=== PATIENT | male | born 1970 | race Caucasian/White ===

== ENCOUNTER 2021-04-07 16:04 | Observation (INO) ==
[2021-04-07] MEDS ORDERED: ACETAMINOPHEN 1,000 MG/100 ML BAG IV ONE (16:18)
[2021-04-07] MEDS ORDERED: 0.9 % SODIUM CHLORIDE 1,000 ML IV ONE (16:18)
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
--- NOTE | 2021-04-07 16:51 | XRay Report ---
CLINICAL INFORMATION: Fever COMPARISON: 04/25/2020 TECHNIQUE: Portable FINDINGS: The heart size, mediastinum and pulmonary vessels are unremarkable. Mild patchy bibasilar airspace disease could represent atelectasis or developing infiltrate.. There are no effusions. The bones and soft tissues are within normal limits. IMPRESSION: Mild patchy bibasilar airspace disease atelectasis or developing infiltrate Interpreted and Authenticated by: Bernabe Mas 04/07/21
[2021-04-07 17:29] LABS: POC Blood Urea Nitrogen 17 mg/dL (6-20); POC CO2 23 mmol/L (22-30); POC Calcium, Ionized 1.19 mmEq/L (1.16-1.32); POC Chloride 98 mEq/L (96-108); POC Creatinine 1.3 mg/dL (0.6-1.2); POC Glucose, Random 100 mg/dL (70-105); POC Hematocrit 45 % (41-55); POC Potassium 4.7 mEql/L (3.3-5.1); POC Sodium 134 mEq/L (133-145)
[2021-04-07] MEDS ORDERED: LACTATED RINGERS 1,000 ML IV ONE (17:32)
[2021-04-07 18:10] LABS: Basophils # (Auto) 0.05 K/mcL (0.00-0.30); Basophils % (Auto) 0.7 % (0.0-2.0); Eosinophils # (Auto) 0 K/mcL (0.00-0.70); Eosinophils % (Auto) 0 % (0.0-7.0); Hemoglobin 14.9 g/dL (13.7-17.5); Lymphocytes # (Auto) 0.83 K/mcL (1.50-4.80); Mean Cell Volume 87.4 fL (80.0-100.0); Mean Corpuscular HGB Conc 34.7 g/dL (31.0-36.0); Mean Platelet Volume 11.2 fL (7.4-10.4); Monocytes # (Auto) 0.56 K/mcL (0.10-0.90); Monocytes % (Auto) 7.4 % (1.0-12.0); Neutrophils % (Auto) 80.9 % (38.0-78.0); Platelet Count 199 K/mcL (140-440); RBC 4.92 M/mcL (4.63-6.08); Red Cell Distribution Width 13.5 % (11.5-14.5); WBC 7.6 K/mcL (4.5-11.0)
[2021-04-07] MEDS ORDERED: AZITHROMYCIN 500 MG in DEXTROSE 5% IN WATER 250 ML IV ONE (19:39)
[2021-04-07] MEDS ORDERED: cefTRIAXone 2 GM in DEXTROSE 5% IN WATER 50 ML IV ONE (19:39)
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
[2021-04-08] MEDS ORDERED: guaiFENesin/DEXTROMETHORPHAN ORAL SOL PO PRN (00:27)
[2021-04-08] MEDS ORDERED: IBUPROFEN 800 MG TABLET PO PRN (00:27)
[2021-04-08] MEDS ORDERED: ONDANSETRON 4 MG/2 ML VIAL IV PRN (00:27)
[2021-04-08] MEDS ORDERED: IPRATROPIUM/ALBUTEROL 3 ML AMPUL.NEB NEB PRN (00:27)
[2021-04-08] MEDS ORDERED: traZODone HCL 100 MG TABLET PO PRN (00:27)
[2021-04-08] MEDS ORDERED: ACETAMINOPHEN 325 MG TABLET PO PRN (00:27)
[2021-04-08] MEDS ORDERED: cefTRIAXone 1 GM in DEXTROSE 5% IN WATER 50 ML IV SCH (00:27)
[2021-04-08 01:18] LABS: Alcohol, Blood < 10.0 mg/dL; Alcohol,Blood < 0.010 gm/dL (<0.010)
[2021-04-08 01:45] LABS: Amphetamine Screen,Urine Suspect positive; Barbiturate Screen,Urine None detected; Benzodiazepines Screen,Urine None detected; Cannabinoid Screen,Urine None detected; Cocaine Screen,Urine None detected; Opiate Screen,Urine None detected; Oxycodone, Urine Screen None detected; Phencyclidine Screen,Urine None detected
[2021-04-08] MEDS: AZITHROMYCIN 500 MG in DEXTROSE 5% IN WATER 250 ML IV SCH ×2 (02:23→10:49)
[2021-04-08] MEDS: 0.9 % SODIUM CHLORIDE 10 ML SYRINGE IV SCH ×3 (05:32→22:04)
[2021-04-08] MEDS: PANTOPRAZOLE 40 MG TABLET PO SCH (07:04)
[2021-04-08 07:23] LABS: Basophils # (Auto) 0.05 K/mcL (0.00-0.30); Basophils % (Auto) 0.5 % (0.0-2.0); Eosinophils # (Auto) 0.01 K/mcL (0.00-0.70); Eosinophils % (Auto) 0.1 % (0.0-7.0); Hematocrit 47.2 % (40.1-51.0); Hemoglobin 15.8 g/dL (13.7-17.5); Lymphocytes # (Auto) 1.52 K/mcL (1.50-4.80); Lymphocytes % (Auto) 16.5 % (15.5-49.0); Mean Cell Volume 91.8 fL (80.0-100.0); Mean Corpuscular HGB Conc 33.5 g/dL (31.0-36.0); Mean Platelet Volume 10.9 fL (7.4-10.4); Monocytes # (Auto) 0.57 K/mcL (0.10-0.90); Monocytes % (Auto) 6.2 % (1.0-12.0); Neutrophils % (Auto) 76.7 % (38.0-78.0); Platelet Count 175 K/mcL (140-440); RBC 5.14 M/mcL (4.63-6.08); Red Cell Distribution Width 13.7 % (11.5-14.5); WBC 9.2 K/mcL (4.5-11.0)
[2021-04-08 08:31] LABS: ALT/SGPT 20 U/L (<40); AST/SGOT 31 U/L (<40); Albumin 3.8 gm/dL (3.2-5.2); Albumin/Globulin Ratio 1.1 (1.0-2.3); Alkaline Phosphatase 114 U/L (39-117); Bilirubin,Total 0.7 mg/dL (0.1-1.0); Blood Urea Nitrogen 15 mg/dL (6-20); Carbon Dioxide 18 mmol/L (22-30); Chloride 97 mmol/L (96-108); Globulin 3.5 gm/dL (2.2-3.7); Glomerular Filtration Rate 58; Glucose 71 mg/dL (70-105)
--- NOTE | 2021-04-08 08:36 | Internal Med Progress Note ---
SUBJECTIVE Subjective Patient information: Note initiated : 04/08/21 at 8:33 am Service Date, if different from initiated Date: [] Patient: Jone Perez 50 y/o M admitted on 04/08/21 for fever/chills/sob. Chief Complaint: [] Interval history: Mr. Perez is a 50 year old M h/o CHF, pulmonary HTN, bipolar depression, prediabetes, CKD III, GERD, methamphetamine abuse, p/w 2 day history of shortness of breath and chills. He received his first dose of CoVID vaccination yesterday. He denies any recent drug use. He is also c/o 5/10, sharp, right sided chest pain, localized. He is c/o chills, denies any fever or sweating. Denies any cough or wheezing. Denies confusion. Vitial signs showing tachycardia and tachypnea with HR and RR in 110s and up to 30s, bpm, respectively. Labs showing WBC 7.6, lactic acid 1.2, ahmet negative. Serum Cr 1.3 at baseline. CXR showing mild patchy bibasilar airspace disease atelectasis or developing infiltrate. 04/08: Low grade fever 37.7 overnight. On room air overnight. [place] negative. Blood culture no growth to date. Urine drug screen: meth positive. Troponin: 0.01-->0.07. Denies chest pain or palpitation. Denies SOB. Denies cough, sputum production, or wheezing. c/o fever, denies chills or sweating. Continue Rocephin and Zosyn. Constitutional Vitals: Vital Signs Temp Pulse Resp BP Pulse Ox 37.7 C H 108 H 28 H 103/59 99 04/08/21 07:54 04/08/21 07:54 04/08/21 07:54 04/08/21 07:54 04/08/21 07:54 Period Temp Pulse Resp BP Sys/Hu Pulse Ox Last 24 Hr 36.9 C-37.9 C 92-127 19-33 90-141/59-92 91-99 Intake and Output 04/07/21 04/08/21 04/08/21 21:59 05:59 13:59 Intake Total 1400 300 Output Total 125 Balance 1400 175 Weight 127.006 kg 131.36 kg Intake & Output: Intake & Output 04/07/21 04/08/21 04/08/21 21:59 05:59 13:59 Intake Total 1400 300 Output Total 125 Balance 1400 175 Weight 127.006 kg 131.36 kg Intake: IV 1400 Sodium Chloride 0.9% 1,000 ml @ 1000 Wide Open IV BOLUS ONE Rx#: [id number] Zithromax 500 mg In Dextrose 5% 250 in Water 250 ml @ 250 mls/hr IV ONCE ONE Rx#:[id number] Rocephin 2 gm In Dextrose 5% in 50 Water 50 ml @ 100 mls/hr IV ONCE ONE Rx#:[id number] Oral 300 Output: Void Amount 125 Other: Urine Appearance Clear Urine Color Dark Yellow General appearance: cooperative, mild distress and obese Head Head exam: Present atraumatic and normal inspection Eye Eye exam: Present normal appearance ENT ENT exam: Present mucous membranes moist, normal exam and normal external ear exam Neck Neck exam: Present normal inspection Respiratory Respiratory exam: Present normal respiratory exam Cardiovascular Cardiovascular exam: Present normal rate and rhythm GI/Abdominal GI/Abdominal exam: Present normal bowel sounds Extremities Exam Extremities exam: Present pedal edema Back Exam Back exam: Present normal inspection Neurological Exam Neurological exam: Present alert and oriented X3 Skin Skin exam: Present erythema, intact, rash and warm OBJ DATA Labs CBC & Chem 7: 04/08/21 06:17 04/08/21 06:17 Labs: Abnormal Lab Results 04/08/21 04/08/21 04/08/21 06:27 06:17 06:17 MPV 10.9 H Neut % (Auto) Lymph % (Auto) Lymph # (Auto) Sodium 132 L Carbon Dioxide 18 L Anion Gap 17.0 H Creatinine 1.4 H POC Creatinine Troponin T 0.07 H* NT-Pro-B Natriuret Pep Procalcitonin Ur Amphetamines Screen 04/08/21 04/07/21 04/07/21 00:27 17:12 17:12 MPV Neut % (Auto) Lymph % (Auto) Lymph # (Auto) Sodium Carbon Dioxide Anion Gap Creatinine POC Creatinine Troponin T NT-Pro-B Natriuret Pep 755.6 H Procalcitonin 0.24 H Ur Amphetamines Screen Suspect positive A 04/07/21 04/07/21 17:12 17:12 MPV 11.2 H Neut % (Auto) 80.9 H Lymph % (Auto) 11.0 L Lymph # (Auto) 0.83 L Sodium Carbon Dioxide Anion Gap Creatinine POC Creatinine 1.3 H Troponin T NT-Pro-B Natriuret Pep Procalcitonin Ur Amphetamines Screen Meds: Medications Acetaminophen (Acetaminophen 325 Mg Tablet) 650 mg PO Q6HP PRN; Protocol PRN Reason: Per Pain Protocol/Fever > 101 Last Admin: 04/08/21 07:35 Dose: 650 mg Documented by: Albuterol/Ipratropium (Ipratropium/Albuterol 3 Ml Ampul.Neb) 3 ml NEB Q4HRT PRN PRN Reason: Wheezing Allopurinol (Allopurinol 100 Mg Tablet) 100 mg PO QDAY [facility] Ceftriaxone Sodium (Ceftriaxone 1 Gm Vial) 1 gm IV Q24H [facility] Diltiazem HCl (Diltiazem 30 Mg Tablet) 30 mg PO BID [facility] Divalproex Sodium (Divalproex Sodium 250 Mg Tablet) 500 mg PO QDAY [facility] Docusate Sodium (Docusate Sodium 100 Mg Capsule) 100 mg PO BID [facility] Furosemide (Furosemide 40 Mg Tablet) 40 mg PO DAILY [facility] Guaifenesin (Guaifenesin/Dextromethorphan Oral Renea) 10 ml PO Q4HP PRN PRN Reason: Cough Heparin Sodium (Porcine) (Heparin 5,000 Unit/Ml Vial) 5,000 unit SQ Q12 [facility] Azithromycin 500 mg/ Dextrose 250 mls @ 250 mls/hr IV Q24H [facility]; Protocol Stop: 04/10/21 01:26 Last Admin: 04/08/21 02:23 Dose: Not Given Documented by: Ibuprofen (Ibuprofen 800 Mg Tablet) 800 mg PO TID PRN; Protocol PRN Reason: Pain Ondansetron HCl (Ondansetron 4 Mg/2 Ml Vial) 4 mg IV Q6HP PRN PRN Reason: Nausea And Vomiting Pantoprazole Sodium (Pantoprazole 40 Mg Tablet) 40 mg PO QAMAC [facility] Last Admin: 04/08/21 07:04 Dose: 40 mg Documented by: Tadalafil 20 Mg (Tablet) 2 dose PO QDAY [facility] Senna (Sennosides 1 Tablet) 2 tab PO HS [facility] Sodium Chloride (0.9 % Sodium Chloride 10 Ml Syringe) 10 ml IV Q8 [facility] Last Admin: 04/08/21 05:32 Dose: 10 ml Documented by: Trazodone HCl (Trazodone Hcl 100 Mg Tablet) 100 - 200 mg PO HSP PRN PRN Reason: Insomnia A/P Assessment and plan (1) Severe pulmonary hypertension: Status: Chronic (2) Prediabetes: Status: Chronic (3) Stage 3 chronic kidney disease: Status: Chronic (4) GERD (gastroesophageal reflux disease): Status: Chronic (5) Congestive heart failure: Status: Chronic (6) Bipolar 1 disorder: Status: Chronic (7) Obesity (BMI 30-39.9): Status: Acute (8) Community acquired pneumonia: Status: Acute (9) Elevated troponin: Status: Acute Narrative A/P Narrative: Assessment and Plans: 1. Community acquired pneumonia: DDx: CoVID pneumonia vs methamphetamine abuse Observation med surg telemetry [place] test negative Urine drug screen: positive for methamphetamine Serum alcohol level Lactic acid 1.2 Procalcitonin level 0.24 Blood culture, no growth to date cbc w/ auto diff in the morning Supplemental oxygen therapy as needed titrate to achieve spo2>=92%, currently on room air Rocephin Zithromax Tylenol PRN fever DuoNEB NEB PRN wheezing Robitussin DM PRN cough 2. Pulmonary HTN: Tadalafil 3. CHF: Clinically stable, does not appear to be exacerbating Lasix PO 4. Chronic kidney disease III: Avoid nephrotoxic agents Saline lock Repeat CMP in the morning to trend kidney function 5. Prediabetes: HgA1c 6.3 6. GERD: Continue oral PPI from home regimen 7. Bipolar depression: Continue to monitor 8. Elevated troponin-i level: Patient was c/o chest pain in the ED, now resolved Troponin: 0.01-->0.07, continue to trend Order ECG Morphine PRN chest pain Oxygen therapy as needed, see above GI ppx: oral PPI DVT ppx: Heparin Code status: DNI DNR Prognosis: stable Disposition: observation med surg telemetry Time Spent With Patient Time: Total time spent is greater than 50% in coordination of care (as documented) at patient's floor/unit and/or counseling patient: Total time spent with greater than 50% in coordination of care (as documented) at patient's floor/unit and/or counseling patient:: Greater than 35 minutes QUALITY VTE Deep Vein Thrombosis/Pulmonary Embolism Present on Admission: No
[2021-04-08] MEDS ORDERED: NITROGLYCERIN 0.4 MG TAB.SUBL SL PRN (08:42)
[2021-04-08] MEDS ORDERED: morphine 2 MG/ML VIAL IV PRN (08:42)
[2021-04-08] MEDS: HEPARIN 5,000 UNIT/ML VIAL SQ SCH ×2 (09:02→22:04)
[2021-04-08] MEDS: cefTRIAXone 1 GM VIAL IV SCH (09:02)
[2021-04-08] MEDS: ALLOPURINOL 100 MG TABLET PO SCH (09:05)
[2021-04-08] MEDS: FUROSEMIDE 40 MG TABLET PO SCH (09:05)
[2021-04-08] MEDS: DOCUSATE SODIUM 100 MG CAPSULE PO SCH ×2 (09:05→22:04)
[2021-04-08] MEDS: DILTIAZEM 30 MG TABLET PO SCH ×2 (09:05→22:04)
[2021-04-08] MEDS: DIVALPROEX SODIUM 250 MG TABLET PO SCH (09:05)
[2021-04-08] MEDS ORDERED: SENNOSIDES 1 TABLET PO SCH (21:00)
[2021-04-09] MEDS: 0.9 % SODIUM CHLORIDE 10 ML SYRINGE IV SCH (06:05)
[2021-04-09 06:41] LABS: Basophils # (Auto) 0.04 K/mcL (0.00-0.30); Basophils % (Auto) 0.6 % (0.0-2.0); Eosinophils # (Auto) 0.05 K/mcL (0.00-0.70); Eosinophils % (Auto) 0.7 % (0.0-7.0); Hemoglobin 13.3 g/dL (13.7-17.5); Lymphocytes # (Auto) 1.55 K/mcL (1.50-4.80); Mean Cell Volume 87.4 fL (80.0-100.0); Mean Platelet Volume 11.1 fL (7.4-10.4); Monocytes # (Auto) 0.65 K/mcL (0.10-0.90); Monocytes % (Auto) 9.6 % (1.0-12.0); Neutrophils % (Auto) 66.1 % (38.0-78.0); Platelet Count 156 K/mcL (140-440); RBC 4.35 M/mcL (4.63-6.08); Red Cell Distribution Width 13.4 % (11.5-14.5); WBC 6.8 K/mcL (4.5-11.0)
[2021-04-09] MEDS: PANTOPRAZOLE 40 MG TABLET PO SCH (07:04)
[2021-04-09 07:07] LABS: ALT/SGPT 15 U/L (<40); AST/SGOT 29 U/L (<40); Albumin 3.1 gm/dL (3.2-5.2); Alkaline Phosphatase 92 U/L (39-117); Bilirubin,Total 0.5 mg/dL (0.1-1.0); Blood Urea Nitrogen 14 mg/dL (6-20); Calcium 8.2 mg/dL (8.6-10.4); Carbon Dioxide 19 mmol/L (22-30); Chloride 98 mmol/L (96-108); Globulin 3.1 gm/dL (2.2-3.7); Glomerular Filtration Rate 78; Glucose 87 mg/dL (70-105)
--- NOTE | 2021-04-09 10:05 | Discharge Summary ---
Discharge Provider Provider Patient information: Note initiated : 04/09/21 at 10:02 am Service Date, if different from initiated Date: [] Patient: Jone Perez 50 y/o M admitted on 04/08/21 for fever/chills/sob. Chief Complaint: [] Date of admission: 04/08/21 00:20 Discharge date: 04/09/21 Primary care physician: Mary Gorman Attending physician on admission: Pablo Joaquin Consults: 04/07/21 Consult to Physician [CONS] Stat Comment: Consulting Provider: Pablo Joaquin Reason For Exam: Physician to Consult Attending physician on discharge: Pablo Shields Pui Discharge Meds Discharge Medications Home Medications furosemide 40 mg tablet 40 mg PO DAILY 04/25/20 [History Confirmed 04/08/21 Last Taken 04/06/21 18:00] allopurinol 100 mg tablet 100 mg PO QDAY 07/23/20 [History Confirmed 04/08/21 Last Taken 04/06/21 18:00] diltiazem HCl 30 mg tablet 30 mg PO BID tab 07/23/20 [History Confirmed 04/08/21 Last Taken 04/06/21 18:00] divalproex 500 mg tablet,extended release 24 hr 500 mg PO QDAY 07/23/20 [History Confirmed 04/08/21 Last Taken 04/06/21 18:00] ibuprofen 800 mg tablet 800 mg PO TID PRN tab 07/23/20 [History Confirmed 04/08/21 Last Taken Unknown] tadalafil 20 mg tablet 40 mg PO QDAY tab 07/23/20 [History Confirmed 04/08/21 Last Taken 04/06/21 18:00] dextromethorphan-guaifenesin 10 mg-100 mg/5 mL oral liquid (Robafen DM Cough) 10 ml PO Q4HP PRN 7 Days ml 04/09/21 [Rx Last Taken Unknown] levofloxacin 750 mg tablet 750 mg PO Q24H #4 tab 04/09/21 [Rx Last Taken Unknown] COURSE Hospital Course Hospital course: Mr. Perez is a 50 year old M h/o CHF, pulmonary HTN, bipolar depression, prediabetes, CKD III, GERD, methamphetamine abuse, p/w 2 day history of s hortness of breath and chills. He received his first dose of CoVID vaccination yesterday. He denies any recent drug use. He is also c/o 5/10, sharp, right sided chest pain, localized. He is c/o chills, denies any fever or sweating. Denies any cough or wheezing. Denies confusion. Vitial signs showing tachycardia and tachypnea with HR and RR in 110s and up to 30s, bpm, respectively. Labs showing WBC 7.6, lactic acid 1.2, ahmet negative. Serum Cr 1.3 at baseline. CXR showing mild patchy bibasilar airspace disease atelectasis or developing infiltrate. 04/08: Low grade fever 37.7 overnight. On room air overnight. [place] negative. Blood culture no growth to date. Urine drug screen: meth positive. Troponin: 0.01-->0.07. Denies chest pain or palpitation. Denies SOB. Denies cough, sputum production, or wheezing. c/o fever, denies chills or sweating. Continue Rocephin and Zosyn. 04/09: Reached clinical stability. Been on room air. Afebrile overnight. Cultures no growth to date. Decision made to discharge him home with Rx sent to pharmacy. 2 week PCP follow up appointment made for him. All questions answered prior to patient being physically discharged. Discharge diagnosis: methamphetamine abuse Time Spent with Patient Time attestation: Total time spent providing and/or coordinating discharge services: Time spent: Less than 30 minutes EXAM Constitutional Vitals: Temp Pulse Resp BP Pulse Ox 36.9 C 82 16 114/74 92 04/09/21 08:00 04/09/21 08:00 04/09/21 08:00 04/09/21 08:00 04/09/21 08:00 General appearance: cooperative and no acute distress Head Head exam: Present atraumatic and normocephalic Eye Eye exam: Present EOMI and PERRL ENT ENT exam: Present mucous membranes moist, normal exam and normal external ear exam Neck Neck exam: Present normal inspection; Absent lymphadenopathy, tenderness or thyromegaly Respiratory Respiratory exam: Absent accessory muscle use, respiratory distress or wheezes Cardiovascular Cardiovascular exam: Present normal rate and rhythm; Absent JVD GI/Abdominal GI/Abdominal exam: Present normal bowel sounds and soft; Absent organomegaly or tenderness Rectal Rectal exam: Present deferred Extremities Exam Extremities exam: Present full ROM, normal capillary refill and normal inspection; Absent tenderness Neurological Exam Neurological exam: Present alert, CN II-XII intact and oriented X3; Absent motor sensory deficit Psychiatric Psychiatric exam: Present normal affect and normal mood; Absent anxious or depressed Skin Skin exam: Present dry and intact Discharge Data Data Completed and Pending Labs on day of discharge: Labs from last 24 hours 04/09/21 04/09/21 04/09/21 05:26 05:26 05:26 WBC 6.8 RBC 4.35 L Hgb 13.3 L Hct 38.0 L MCV 87.4 MCH 30.6 MCHC 35.0 RDW 13.4 Plt Count 156 MPV 11.1 H Neut % (Auto) 66.1 Lymph % (Auto) 23.0 [place] % (Auto) 9.6 Eos % (Auto) 0.7 Baso % (Auto) 0.6 Lymph # (Auto) 1.55 [place] # (Auto) 0.65 Eos # (Auto) 0.05 Baso # (Auto) 0.04 Absolute Neutrophils 4.46 Sodium 129 L Potassium 3.8 Chloride 98 Carbon Dioxide 19 L Anion Gap 12.0 BUN 14 Creatinine 1.1 GFR Calculation 78 Glucose 87 Calcium 8.2 L Magnesium 2.1 Total Bilirubin 0.5 AST 29 ALT 15 Alkaline Phosphatase 92 Troponin T 0.10 H* Total Protein 6.2 Albumin 3.1 L Globulin 3.1 Albumin/Globulin Ratio 1.0 04/09/21 04/08/21 04/08/21 00:35 18:11 12:42 WBC RBC Hgb Hct MCV MCH MCHC RDW Plt Count MPV Neut % (Auto) Lymph % (Auto) [place] % (Auto) Eos % (Auto) Baso % (Auto) Lymph # (Auto) [place] # (Auto) Eos # (Auto) Baso # (Auto) Absolute Neutrophils Sodium Potassium Chloride Carbon Dioxide Anion Gap BUN Creatinine GFR Calculation Glucose Calcium Magnesium Total Bilirubin AST ALT Alkaline Phosphatase Troponin T 0.10 H* 0.11 H* 0.08 H* Total Protein Albumin Globulin Albumin/Globulin Ratio Preliminary micro results at discharge 04/07/21 19:57 Blood Culture - Preliminary Blood 04/07/21 19:51 Blood Culture - Preliminary Blood Discharge Plan Patient/Caregiver Discharge Instructions Activity: increase activity as tolerated Diet: Regular Diet Prescriptions: New dextromethorphan-guaifenesin [Robafen DM Cough] 10-100 mg/5 mL Liquid 10 ml PO Q4HP PRN (Reason: Cough) 7 Days 0RF levofloxacin 750 mg tablet 750 mg PO Q24H Qty: 4 0RF Continued allopurinol 100 mg tablet 100 mg PO QDAY 0RF diltiazem HCl 30 mg tablet 30 mg PO BID 0RF divalproex 500 mg tablet extended release 24 hr 500 mg PO QDAY 0RF tadalafil 20 mg tablet 40 mg PO QDAY 0RF Rx Instructions: administer approximately 30min before sexual activity; do not use more than 1 dose per 24hrs furosemide 40 mg tablet 40 mg PO DAILY 0RF ibuprofen 800 mg tablet 800 mg PO TID PRN (Reason: Pain) 0RF Follow Up Plan Follow up with: Mary Gorman [Primary Care Provider] - Patient Disposition: Home, Self-Care Prognosis: Good Rehab Potential: Good I certify that the patient requires SNF services: No Overall status at discharge: patient is back to baseline Discharge Orders: Discharge Order (Routine); Ordered 04/09/21 Ordered By: Pablo BOOTHE VTE Deep Vein Thrombosis/Pulmonary Embolism Present on Admission: No
[2021-04-09] MEDS: AZITHROMYCIN 500 MG in DEXTROSE 5% IN WATER 250 ML IV SCH (10:21)
[2021-04-09] MEDS: HEPARIN 5,000 UNIT/ML VIAL SQ SCH (10:22)
[2021-04-09] MEDS: DIVALPROEX SODIUM 250 MG TABLET PO SCH (10:22)
[2021-04-09] MEDS: cefTRIAXone 1 GM VIAL IV SCH (10:22)
[2021-04-09] MEDS: DOCUSATE SODIUM 100 MG CAPSULE PO SCH (10:23)
[2021-04-09] MEDS: FUROSEMIDE 40 MG TABLET PO SCH (10:23)
[2021-04-09] MEDS: ALLOPURINOL 100 MG TABLET PO SCH (10:23)
[2021-04-09] MEDS: DILTIAZEM 30 MG TABLET PO SCH (10:23)
--- NOTE | 2021-04-09 13:08 | EKG ---
[facility] Test Date: 2021-04-08 Pat Name: Jone Perez Department: [facility] Room: 108 Gender: Male Manager Post: : 1970 Requested By: Pablo Joaquin Order Number: [id number] Reading MD: Bernabe Herndon M.D. Measurements Intervals [place] Rate: 119 P: 71 FL: 137 QRS: 130 QRSD: 112 T: 10 QT: 329 QTc: 463 Interpretive Statements Sinus tachycardia Probable RVH w/ secondary repol abnormality Inferior infarct, old INCOMPLETE RIGHT SUZETTE BRANCH BLOCK Electronically Signed On 04-09-2021 13:08:01 PST by Bernabe Herndon M.D. /[id number]
--- NOTE | 2021-04-13 07:18 | EKG ---
[facility] Test Date: 2021-04-08 Pat Name: Jone Perez Department: 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 Measurements Intervals [place] Rate: 97 P: 71 [place]: 144 QRS: 125 QRSD: 119 T: 8 QT: 350 QTc: 445 Interpretive Statements Sinus rhythm Probable left atrial enlargement Left posterior fascicular block Inferior infarct, old INCOMPLETE RIGHT SUZETTE BRANCH BLOCK BORDERLINE ST DEPRESSION, LATERAL LEADS Electronically Signed On 04-13-2021 7:17:44 PST by Bernabe Herndon M.D. /[id number]
== END 2021-04-09 14:00 | disposition home or self-care (01) ==
LOC: MEDSUR 16:04 → ED 16:04 → MEDSUR 04-08 00:24
PROVIDERS: ADMIT Internal Medicine; ATTEND Internal Medicine

== ENCOUNTER 2023-05-02 09:09 | Observation (INO) ==
[2023-05-02] MEDS ORDERED: IOPAMIDOL 100 ML BOTTLE IV ONE (09:10)
[2023-05-02] MEDS ORDERED: PHENobarb/HYOSCY/ATROPINE/SCOP 1 DOSE BOTTLE PO ONE (09:44)
[2023-05-02] MEDS ORDERED: DICYCLOMINE 20 MG/2 ML VIAL IM ONE (09:44)
[2023-05-02] MEDS ORDERED: ONDANSETRON 4 MG/2 ML VIAL IV ONE (09:44)
[2023-05-02] MEDS ORDERED: MAG HYDROX/AL HYDROX/SIMETH 30 ML ORAL.SUSP PO ONE (10:12)
[2023-05-02 10:19] LABS: POC Calcium, Ionized 1.1 (1.16-1.32); POC Creatinine 0.9 (0.6-1.2); POC Potassium 3.4 (3.3-5.1)
[2023-05-02 10:31] LABS: Basophils # (Auto) 0.04 K/mcL (0.00-0.30); Basophils % (Auto) 0.3 % (0.0-2.0); Eosinophils # (Auto) 0.02 K/mcL (0.00-0.70); Eosinophils % (Auto) 0.2 % (0.0-7.0); Hematocrit 48.1 % (40.1-51.0); Hemoglobin 16.3 g/dL (13.7-17.5); Lymphocytes # (Auto) 1.67 K/mcL (1.50-4.80); Lymphocytes % (Auto) 13.5 % (15.5-49.0); Mean Cell Volume 87.9 fL (80.0-100.0); Mean Corpuscular HGB Conc 33.9 g/dL (31.0-36.0); Mean Platelet Volume 10.5 fL (8.8-12.5); Monocytes # (Auto) 0.59 K/mcL (0.10-0.90); Monocytes % (Auto) 4.8 % (1.0-12.0); Neutrophils % (Auto) 81.1 % (38.0-78.0); Platelet Count 215 K/mcL (140-440); RBC 5.47 M/mcL (4.63-6.08); Red Cell Distribution Width 13.8 % (11.5-14.5); WBC 12.4 K/mcL (4.5-11.0)
[2023-05-02 11:07] LABS: ALT/SGPT 23 U/L (<40); AST/SGOT 24 U/L (<40); Albumin 3.9 gm/dL (3.2-5.2); Albumin/Globulin Ratio 1.2 (1.0-2.3); Alkaline Phosphatase 128 U/L (39-117); Bilirubin,Total 0.6 mg/dL (0.1-1.0); Blood Urea Nitrogen 12 mg/dL (6-20); Calcium 9.1 mg/dL (8.6-10.4); Carbon Dioxide 22 mmol/L (22-30); Chloride 103 mmol/L (96-108); Globulin 3.2 gm/dL (2.2-3.7); Glomerular Filtration Rate 86; Glucose 114 mg/dL (70-105)
[2023-05-02] MEDS ORDERED: PIPERACILLIN SODIUM/TAZOBACTAM 3.375 GM in DEXTROSE 5% IN WATER 50 ML IV ONE (12:31)
[2023-05-02] MEDS ORDERED: metroNIDAZOLE 500 MG/100 ML BAG IV SCH (13:30)
[2023-05-02] MEDS ORDERED: CIPROFLOXACIN 400 MG/200 ML BAG IV SCH (13:30)
[2023-05-02] MEDS: PROMETHAZINE 25 MG/ML VIAL IV PRN (13:48)
[2023-05-02] MEDS: DEXTROSE 5%-LR 1,000 ML IV SCH ×2 (15:49→23:54)
[2023-05-02] MEDS: HYDROmorphone 0.5 MG/0.5 ML SYRINGE IV PRN ×2 (16:04→23:46)
[2023-05-02] MEDS: CIPROFLOXACIN 400 MG/200 ML BAG IV SCH (16:15)
[2023-05-02] MEDS: metroNIDAZOLE 500 MG/100 ML BAG IV SCH (21:23)
[2023-05-03] MEDS: CIPROFLOXACIN 400 MG/200 ML BAG IV SCH ×3 (00:51→21:58)
[2023-05-03] MEDS: HYDROmorphone 0.5 MG/0.5 ML SYRINGE IV PRN ×5 (05:20→23:17)
[2023-05-03] MEDS: DEXTROSE 5%-LR 1,000 ML IV SCH ×3 (05:22→17:50)
[2023-05-03] MEDS: PROMETHAZINE 25 MG/ML VIAL IV PRN ×2 (05:23→14:54)
[2023-05-03] MEDS: metroNIDAZOLE 500 MG/100 ML BAG IV SCH ×2 (05:49→13:45)
[2023-05-03 06:30] LABS: Hematocrit 48.5 % (40.1-51.0); Hemoglobin 16.4 g/dL (13.7-17.5); Mean Cell Volume 88.7 fL (80.0-100.0); Mean Corpuscular HGB Conc 33.8 g/dL (31.0-36.0); Mean Platelet Volume 11.6 fL (8.8-12.5); Platelet Count 221 K/mcL (140-440); RBC 5.47 M/mcL (4.63-6.08); Red Cell Distribution Width 14.2 % (11.5-14.5); WBC 12.8 K/mcL (4.5-11.0)
[2023-05-03 07:06] LABS: ALT/SGPT 29 U/L (<40); AST/SGOT 32 U/L (<40); Albumin 3.6 gm/dL (3.2-5.2); Albumin/Globulin Ratio 1.2 (1.0-2.3); Alkaline Phosphatase 136 U/L (39-117); Bilirubin,Total 0.8 mg/dL (0.1-1.0); Blood Urea Nitrogen 10 mg/dL (6-20); Calcium 8.7 mg/dL (8.6-10.4); Carbon Dioxide 20 mmol/L (22-30); Chloride 104 mmol/L (96-108); Globulin 2.9 gm/dL (2.2-3.7); Glomerular Filtration Rate 98; Glucose 117 mg/dL (70-105)
[2023-05-03] MEDS: MEROPENEM 1 GM in 0.9 % SODIUM CHLORIDE 50 ML IV SCH (21:28)
[2023-05-04] MEDS: PROMETHAZINE 25 MG/ML VIAL IV PRN ×2 (01:59→15:51)
[2023-05-04] MEDS: HYDROmorphone 0.5 MG/0.5 ML SYRINGE IV PRN ×5 (02:00→15:51)
[2023-05-04] MEDS: DEXTROSE 5%-LR 1,000 ML IV SCH (04:55)
[2023-05-04 05:41] LABS: Amphetamine Screen,Urine Suspect positive; Barbiturate Screen,Urine None detected; Benzodiazepines Screen,Urine None detected; Cannabinoid Screen,Urine None detected; Cocaine Screen,Urine None detected; Opiate Screen,Urine Suspect Positive; Oxycodone, Urine Screen None detected; Phencyclidine Screen,Urine None detected
[2023-05-04] MEDS: MEROPENEM 1 GM in 0.9 % SODIUM CHLORIDE 50 ML IV SCH ×2 (05:53→13:52)
[2023-05-04 06:23] LABS: Hematocrit 50.7 % (40.1-51.0); Mean Cell Volume 89.7 fL (80.0-100.0); Mean Corpuscular HGB Conc 33.5 g/dL (31.0-36.0); Mean Platelet Volume 11.7 fL (8.8-12.5); Platelet Count 218 K/mcL (140-440); RBC 5.65 M/mcL (4.63-6.08); Red Cell Distribution Width 14.2 % (11.5-14.5); WBC 16.6 K/mcL (4.5-11.0)
[2023-05-04 06:37] LABS: ALT/SGPT 19 U/L (<40); AST/SGOT 16 U/L (<40); Albumin 3.5 gm/dL (3.2-5.2); Albumin/Globulin Ratio 1.1 (1.0-2.3); Alkaline Phosphatase 123 U/L (39-117); Bilirubin,Total 1.2 mg/dL (0.1-1.0); Blood Urea Nitrogen 16 mg/dL (6-20); Calcium 9.1 mg/dL (8.6-10.4); Carbon Dioxide 20 mmol/L (22-30); Chloride 99 mmol/L (96-108); Globulin 3.2 gm/dL (2.2-3.7); Glomerular Filtration Rate 69; Glucose 128 mg/dL (70-105)
[2023-05-04] MEDS ORDERED: PANTOPRAZOLE 40 MG VIAL IV SCH (07:30)
[2023-05-04] MEDS ORDERED: ONDANSETRON 4 MG/2 ML VIAL IV PRN (07:42)
[2023-05-04] MEDS: FAMOTIDINE 20 MG TABLET PO SCH ×2 (08:01→08:47)
[2023-05-04] MEDS: CIPROFLOXACIN 400 MG/200 ML BAG IV SCH (08:02)
[2023-05-04] MEDS ORDERED: MAG HYDROX/AL HYDROX/SIMETH 30 ML ORAL.SUSP PO ONE (08:44)
[2023-05-04] MEDS ORDERED: DILTIAZEM 30 MG TABLET PO SCH (09:00)
[2023-05-04] MEDS ORDERED: FUROSEMIDE 40 MG TABLET PO SCH (09:00)
[2023-05-04] MEDS ORDERED: TADALAFIL 20 MG PO SCH (09:00)
[2023-05-04 11:35] LABS: Estimated Average Glucose(eAG) 120 mg/dL; Hemoglobin A1C 5.8 % Hgb (4.0-6.0)
[2023-05-04] MEDS ORDERED: FAMOTIDINE/PF 20 MG/2 ML VIAL IV ONE (14:12)
== END 2023-05-04 16:15 | disposition short-term general hospital (02) ==
LOC: MEDSUR 09:09 → ED 09:09 → MEDSUR 15:00
PROVIDERS: ADMIT Surgery Surgical Critical Care; ATTEND Surgery Surgical Critical Care